=== PATIENT | female | born 1990 | race Caucasian/White ===

== ENCOUNTER 2024-01-14 19:30 | Emergency (ER) | payer OTHER, SELFPAY ==
--- NOTE | 2024-01-14 19:36 | ED_ITS ---
HPI - URI/Sore Throat General Chief Complaint: Upper Respiratory Infection Stated Complaint: SORE THROAT Time Seen by Provider: 01/14/24 19:49 Source: patient and RN notes reviewed Mode of arrival: ambulatory Limitations: no limitations History of Present Illness HPI Narrative: 33-year-old female presents to the [facility] with complaints of a sore throat, coughing, sneezing that started today. No treatment prior to arrival Related Data Home Medications Medication Instructions Recorded Confirmed apixaban 5 mg tablet (Eliquis) 5 mg PO BID 01/14/24 01/14/24 metoprolol succinate 25 mg 25 mg PO DAILY 01/14/24 01/14/24 tablet,extended release 24 hr Allergies Allergy/AdvReac Type Severity Reaction Status Date / Time diphenhydramine Allergy Severe Anaphylaxis Verified 01/14/24 19:51 [From Harshal] Review of Systems Review of Systems: All systems reviewed & are unremarkable except as noted in HPI and below Constitutional: Constitutional: Reports no additional constitutional complaints ENT: Reports as per HPI Cardiovascular: Cardiovascular: Reports no additional cardiovascular c omplaints, Denies chest pain and Denies dyspnea Respiratory: Respiratory: Reports no additional respiratory complaints, Denies chest congestion, Denies cough and Denies dyspnea Gastrointestinal: Gastrointestinal: Reports no additional gastrointestinal complaints, Denies abdominal pain, Denies nausea and Denies vomiting Musculoskeletal: Musculoskeletal: Reports no additional musculoskeletal complaints Integumentary/Breasts: Skin/Breast: Reports system reviewed and no additional complaints, except as docu PMFSH Comments At the time of my signature, I reviewed and agree with the nursing past medical, surgical, social, and family history. There is no relevant family history pertinent to the patient complaint. Exam Const: General: cooperative, healthy appearing, comfortable, no acute distress, well developed, alert and well nourished Nutritional Appearance: well nourished Orientation/consciousness: patient oriented x3 Limitations: no limitations HENMT: Head: normal to inspection Ears: hearing grossly normal bilaterally, external ears normal, TM's normal bilaterally, EAC's normal, mastoids normal and no periauricular adenopathy Face/Nose/Sinus: Normal external nose present, normal facial exam and face symmetric Face and sinus: normal facial exam and face symmetric Mouth: Yes Normal oral and palatal mucosa present, Yes lip normal and Yes tongue normal Throat: tonsils normal, uvula midline, postnasal drainage and no uvular edema Eyes: General: appearance normal, both eyes and all related structures Alignment and Position: alignment normal Periorbital: periorbital findings normal Neck: Neck: normal visual inspection, full ROM, no lymphadenopathy and no meningeal signs Chest: Chest palpation & inspection: normal inspection of the chest Resp: Effort & Inspection: normal respiratory effort and able to speak in complete sentences Auscultation: clear to auscultation bilaterally, no crackles, no rales, no rhonchi and no wheezes Cardio: Rate: regular rate Skin: General skin exam: normal color and no rashes or lesions noted Lesions: no lesions Rashes: no rashes Wounds: no wounds Neuro: General: patient oriented x3, gait normal, tone normal, moves all extremities and no meningeal signs Cognition (Neuro): normal cognition Speech: normal speech Gait exam (Neuro): Normal gait present Extrem: General: normal to inspection, full ROM, capillary refill normal and normal gait Psych: Appearance: grossly normal and well kempt Mental Status: mental status grossly normal Speech and movement: Normal speech and movement present and Clear speech present Affect: normal affect Attitude: cooperative Course Course Level of Care: Express Care Visit Vital Signs Vital signs: Vital Signs Temperature 97.5 F L 01/14/24 19:50 Pulse Rate 84 01/14/24 19:50 Respiratory Rate 17 01/14/24 19:50 Blood Pressure 134/78 01/14/24 19:50 Pulse Oximetry 100 01/14/24 19:50 Oxygen Delivery Room Air 01/14/24 19:50 Temperature 97.5 F L 01/14/24 19:50 Pulse Rate 84 01/14/24 19:50 Respiratory Rate 17 01/14/24 19:50 Blood Pressure 134/78 01/14/24 19:50 Pulse Oximetry 100 01/14/24 19:50 Oxygen Delivery Room Air 01/14/24 19:50 Reviewed MDM - URI/Sore Throat MDM Narrative Medical decision making narrative: Patient sitting comfortably in exam room. Nontoxic, vitals stable. Patient in no acute distress Patient presents with a sore throat, sneezing that started today. No treatment prior to arrival Strep test negative Will culture Patient appropriate for outpatient treatment of viral URI versus allergies. Discharge instructions reviewed with patient, as well as provided in writing per nursing staff. The instructions also include specific and strict return/GO TO THE ER as well as f/u information. All questions have been answered, and the patient deny any further questions with discharge and discharge plan. Some parts of this dictation were generated by voice recognition software and may contain typographical and/or grammatical inaccuracies. Differential Diagnosis Differential diagnosis: Likely upper respiratory infection, otitis media, sinusitis, viral infection and pharyngitis Lab Data Labs: Lab Results 01/14/24 Range/Units 19:57 POC Grp A Strep Screen Negative (Negative) Reviewed Critical Care Time Critical Care Time Critical Care Time: No Discharge Plan Discharge Clinical Impression: PND (post-nasal drip) Patient Disposition: Home, Self-Care Condition: Stable Instructions: Postnasal Drip (DC) Additional Instructions: Your rapid strep swab was negative today at [facility]. A throat culture will be sent to the laboratory for further testing. If the test is positive, you will receive a phone call within 48 hours and an appropriate antibiotic will be initiated at that time. -Alternate Tylenol and Motrin per package directions for fever or pain. -Antihistamine medication such as Zyrtec/Claritin/Yennifer during the day can help improve symptoms. -doing daily nasal irrigations can help relieve pressure your sinuses. Things like a Neti pot -Use Flonase daily to help reduce the inflammation and dry up your sinuses. -You can also use Mucinex. Be sure to drink plenty of water with these medications at least 8 ounces with every dose and it is important to drink 8 to 10 glasses of water per day. Water is a natural decongestant -Eat and drink things that are easy to swallow, like tea or soup, or popsicles. -Oral rinses such as: Salt water gargles and/or may use topical anesthetic (eg. Chloraseptic spray) or lozenges to relieve dryness or throat pain). -Frequent hand washing or hand tensile tester is one of the best ways to prevent spread of infection. -Using a vaporizer or humidifier at night will also help thin secretions and help with coughing up phlegm. -Follow up with primary care provider in 7-10 days if condition is not improving - For new or worsening symptoms go directly to the nearest ER Patient Language: [place] Prescriptions: No Action metoprolol succinate 25 mg tablet extended release 24 hr 25 mg PO DAILY Eliquis 5 mg tablet 5 mg PO BID Follow-up/Referrals: UNKNOWN,DOCTOR [Non-Staff] - Stand Alone Forms: Work/School Release IP Time of Disposition: 19:58
[2024-01-14 19:50] VITALS: BP 134/78; PULSE 84; RESP 17; TEMP 36.4; O2SAT 100
[2024-01-14 19:58] LABS: EDSTREPNEGPOS1 Negative (Negative)
== END 2024-01-14 20:00 | disposition home or self-care (01) ==
PROVIDERS: Emergency Provider Nurse Practitioner
DX: R09.82 Postnasal drip (principal); Z79.01 Long term (current) use of anticoagulants
CPT/HCPCS: 87081; 87880; 99203; G0463

== ENCOUNTER 2024-06-02 02:51 | Emergency (ER) | payer OTHER, SELFPAY ==
[2024-06-02 02:51] VITALS: BP 116/61; PULSE 73; RESP 18; TEMP 36.1; O2SAT 100
--- OUTSIDE RECORDS SUMMARY | 2024-06-02 02:53 | XMS_ITS | Clinical Summary ---
Author Organization [facility] [employer] Address [address] [place] [address] Care Team Providers Care Project Drilling Engineer Name Role Phone Dimas Nolan DO Primary Care Provider [phone] Source Comments [facility],non-owned Affiliates and Associated Physician Practices is amultiple site organization consisting of ambulatory clinics and hospital sitesin [place], [place], [place] and [place]. This disclosure is being madepursuant to the Care Everywhere program and may not contain all information available regarding this patient. Last updated 17.[facility] [employer] Allergies Active Allergy Reactions Criticality Noted Date Comments Amoxicillin Rash Medium 05/14/2023 swelling Nyquil Anaphylaxis High 04/11/2023 Penicillins Unknown 02/14/2015 Medications * Be aware that medications may not be up to date on this document. Alwaysverify current medications with the patient. Medication Sig Dispensed Refills Start Date End Date Status metoprolol succinate XL 24hr (Toprol XL) 25 MG tabletIndications: Mitral valve prolapse Take 1 (one) tablet by mouth once daily 90 tablet 4 05/14/2023 Active SEMAGLUTIDE,0.25 OR 0.5MG/DOS, SC Inject 0.75 mg subcutaneously Active acetaminophen CR (Tylenol Arthritis Pain) 650 MG tablet Take 1 (one) tablet by mouth every 8 hours as needed Active apixaban (Eliquis) 5 MG tabletIndications: Acute deep vein thrombosis (DVT) of popliteal vein of left lower extremity (HCC),Acute pulmonary embolism without acute cor pulmonale, unspecified pulmonary embolism type (HCC) Take 1 (one) tablet by mouth 2 times daily for 67 days 90 tablet 1 11/26/2023 Active Active Problems Problem Noted Date Diagnosed Date Closed fracture of upper end of left fibula 11/13 Closed nondisplaced fracture of lateral malleolus of left fibula 11/24/2023 Acute deep vein thrombosis (DVT) of lower extrem ity 11/09/2023 Acute pulmonary embolism without acute cor pulmo nale 11/09/2023 Encounter for evaluation of potential volunteer sibling donor 10/17/2021 Non-rheumatic mitral regurgitation 05/05/2017 Mitral valve prolapse 05/05/2016 Systolic murmur 02/14/2015 Immunizations Name Administration Dates Next Due DTP, HISTORIC VACCINE 05/14/1995, 992,07/25/1990, 991,02/18/1990 HEP B VACCINE, PED/ADOL 05/18/2000,12/19/1999, HIB VACCINE 05/30/1991, 1,07/25/1990, 991 INFLUENZA VACCINE, QUADR. (F LUZONE; FLULAVAL; FLUARIX; AFLURIA QUADRIVALENT; 6MO+), 0.5 ML (IIV4) 12/29/2021 MMR VACCINE 10/04/2021,05/14/1995,05/30/1991 POLIO OPV 05/14/1995, 2,05/31/1990, 990 TDAP (7yrs+) 05/24/2014 TDAP, HISTORIC VACCINE 07/23/2021 Family History Medical History Relation Name Comments Hypertension Father Hypertension Mother Thyroid Disease Mother Relation Name Status Comments Father Alive Mother Alive Social History Tobacco Use Types Packs/Day Years Used Date Smoking Tobacco: Never Smokeless Tobacco: Never Tobacco Cessation:Counseling Given: Not Answered Alcohol Use Standard Drinks/Week Comments Never 0 (1 standard drink = 0.6 oz pur e alcohol) PHQ-2 Answer Date Recorded Patient Health Questionnaire-2 Score 0 05/14/2023 Sex and Gender Information Value Date Recorded Sex Assigned at Not on file Gender Identity Not on file Sexual Orientation Not on file Last Filed Vital Signs Vital Sign Reading Time Taken Comments Blood Pressure 110/74 11/26/2023 7:44 AM CDT Pulse 84 11/26/2023 7:44 AM CDT Temperature 36.9 C (98.4 F) 11/26/2023 7:44 AM CDT Respiratory Rate 22 11/26/2023 7:44 AM CDT Oxygen Saturation 100% 11/26/2023 7:44 AM CDT Inhaled Oxygen Concentration - - Weight 83 kg (183 lb) 11/26/2023 7:44 AM CDT Height 170.2 cm (5' 7 ) 11/26/2023 7:44 AM CDT Body Mass Index 28.66 11/26/2023 7:44 AM CDT Plan of Treatment Health Maintenance Due Date Last Done Comments COVID-19 VACCINE ( season) 2023 INFLUENZA VACCINE (#1) 2023 12/29/2021 PAP SMEAR 02/28/2024 02/27/2021 (Done Outside Per Report) DEPRESSION SCREENING 03/15/2024 05/14/2023, 12/30/19 22 DTAP/TDAP/TD VACCINES (8 - Td or Tdap) 07/24/2031 07/23/2021, 05/24/2014, 05/14/1995, Additional history exists ZOSTER VACCINE (1 of 2) 11/24/2039 HIB VACCINE Completed 05/30/1991, 11/1990, 07/25/1990, Additional history exists HEPATITIS B VACCINE Completed 05/18/2000, 12/19/1999, 11/13/1999 HEPATITIS C SCREENING Completed 03/01/2021 (Done Outside Per Report) HIV SCREENING Completed 03/01/2021 (Done Outside Per Report) HPV VACCINE Aged Out No longer eligi ble based on patient's age to complete this topic MENINGOCOCCAL (Group B) VACCINE SHARED DECISION-MAKING Aged Out No longer eligible based on patient's age to complete this topic MENINGOCOCCAL GROUPS A/C/Y/W VACCINE Aged Out No longer eligible based on patient's age to complete this topic PNEUMOCOCCAL VACCINE Aged Out No long er eligible based on patient's age to complete this topic Care Teams Project Drilling Engineer Relationship Specialty Start Date End Date Dimas Nolan DO [address] [address] PCP - General Family Medicine 12/23/21
--- OUTSIDE RECORDS SUMMARY | 2024-06-02 02:53 | XMS_ITS | Referral Summary ---
Author Organization [facility] [address] [place] [address] Care Team Providers Care Eligibility Clerk Name Role Phone Steven Irene MD Unavailable + [phone] Nelida Mason MD PhD Unavailable [phone] Regina Mcmahon MD Unavailable [phone] Dimas Nolan DO Primary Care Provider + Allergies Active Allergy Reactions Criticality Noted Date Comments Amoxicillin Amoxicillin Unknown 01/24/2020 Nyquil Anaphylaxis High 04/11/2023 Penicillin V Unknown 01/24/2020 Penicillins Unknown 02/14/2015 Medications acetaminophen ER (TYLENOL) 650 mg 8 hr tablet Take 1 tablet (650 mg total) by mouth every 8 (eight) hours as needed for pain Active metoprolol XL (TOPROL-XL) 25 mg extended release tablet Take 1 tablet (25 mg total) by mouth every evening Active SEMAGLUTIDE SUBQ Inject 0.75 mg under the skin once a week Weekly on Wednesday Active apixaban (ELIQUIS) 5 mg tabletIndication s:deep venous thrombosis Take 2 tablets (10 mg total) by mouth 2 (two) times a day for 7 days, THEN 1 tablet (5 mg total) 2 (two) times a day. 148 tablet 11/11/2023 Active methocarbamoL (ROBAXIN) 500 mg tablet Take 1 tablet (500 mg total) by mouth 2 (two) times a day 20 tablet 01/27/2024 Active nitrofurantoin monohydrate (MACROBID) 100 mg capsule Take 1 capsule (100 mg total) by mouth 2 (two) times a day 10 capsule 01/27/2024 Active Active Problems Problem Noted Date Diagnosed Date Closed fracture of upper end of left fibula 11/13 Closed nondisplaced fracture of lateral malleolus of left fibula 11/24/2023 Acute pulmonary embolism without acute cor pulmo nale 11/09/2023 Acute deep vein thrombosis (DVT) of lower extrem ity 11/09/2023 Single subsegmental pulmonar y embolism without acute cor pulmonale 11/09/2023 Encounter for evaluation of potential volunteer sibling donor 10/17/2021 Non-rheumatic mitral regurgitation 05/05/2017 Mitral valve prolapse 05/05/2016 Systolic murmur 02/14/2015 Resolved Problems Problem Noted Date Diagnosed Date Resolved Date Encounter for supervision of other normal , third trimester 10/04/2021 10/05/2021 Overview (10/05/2021): 1. Supervision of a. EDC by LMP = 10 week ultrasound b. O+/E/-/-, HIV NR Needs MMR PP c. Anatomy: 05/14 incomplete 62%. Completed 06/12 40%ile d. GCT: 102 e. Tdap: given 07/23 f. COVID Vaccine: strongly recommended 1/25 g. GBS: negative h. Delivery Planning: TBD i. Feeding: breast, has breast pump and is taking BF courses j. Baby boy, Ty 2. MVP a. On Metoprolol XL 25mg daily b. Asymptomatic c. Last ECHO years ago. Repeat 06/19 normal Normal course 10/04/202108/2021 Overview (10/05/2021): 10/04/2021, PPD 1 status post (SK): Rh positive Rubella equivocal - MMR ordered and supplementing with formula until baby's blood sugars stabilize Ambulating, voiding, tolerating regular diet, pain controlled AF VSS WNL Normal exam H&H appropriate Continue routine care 10/05/2021 (SK): well Patient has no complaints MMR administered yesterday AF VSS WNL Normal exam Stable for discharge Routine discharge precautions Patient declines discharge prescription for pain medication Encounter for elective induction of labor 10/02/2021 10/05/2021 Overview (10/05/2021): 10/03/21, 0945 (SO): Has had 2 doses of cytotec and labor began. Is comfortable with an epidural Began having recurrent variable decels, some down to 70s and also some lates, Cat 2 tracing AR[address] done per Dr Rice, thick mec, IUPC and scalp lead placed Will start amnioinfusion O2 is on Labor progress has been rapid, is now 6/100/[address] Evans and had him view the monitor strip in office Will monitor to see if the intervention are effective Encounter for supervision of normal , antepartum 03/11/2021 11/18/2021 Immunizations Immunization Administration Dates Next Due Influenza, Unspecified 01/24/2020(Deferred: Kim ent Refused) MMR 10/04/2021 Tdap 07/23/2021 Social History Tobacco Use Types Packs/Day Years Used Date Smoking Tobacco: Never Smokeless Tobacco: Never Alcohol Use Standard Drinks/Week Comments Never 0 (1 standard drink = 0.6 oz pur e alcohol) [facility] Utilities Answer Date Recorded In the past 12 months has th e electric, gas, oil, or water company threatened to shut off services in your home? No 11/10/2023 Social Connection and Isolat ion Panel [NHANES] Answer Date Recorded In a typical week, how many times do you talk on the phone with family, friends, or neighbors? More than three times a week 11/10/2023 How often do you get togethe r with friends or relatives? More than three times a week 11/10/2023 How often do you attend chur ch or mandaen services? Never 11/10/2023 Do you belong to any clubs o r organizations such as episcopalian groups, unions, fraternal or athletic groups, or school groups? No 11/10/2023 How often do you attend meet ings of the clubs or organizations you belong to? Never 11/10/2023 Are you , , di vorced, , never , or living with a partner? 11/10/2023 AUDIT-C Answer Date Recorded Q1: How often do you have a drink containing alc ohol? Never 10/02/2021 Average Number of Drinks Not on file 022 Frequency of Binge Drinking Not on file 09/13 Overall Financial Resource Strain (CARDIA) Answe r Date Recorded How hard is it for you to pa y for the very basics like food, housing, medical care, and heating? Not very hard 11/10/2023 Hunger Vital Sign Answer Date Recorded Within the past 12 months, y ou worried that your food would run out before you got the money to buy more. Never true 11/10/19 24 Within the past 12 months, t he food you bought just didn't last and you didn't have money to get more. Never true 11/10/2023 PRAPARE - Transportation Answer Date Re corded In the past 12 months, has l ack of transportation kept you from medical appointments or from getting medications? No 10/14 In the past 12 months, has l ack of transportation kept you from meetings, work, or from getting things needed for daily living? No 11/10/2023 [place] Depression Scale Answer Date Recorded [place] Depression Scale Total 16 11/13/2021 The thought of harming myself has occurred to me . Never 11/13/2021 Housing Stability Vital Sign Answer Nuno e Recorded In the last 12 months, was t here a time when you were not able to pay the mortgage or rent on time? No 11/10/2023 In the past 12 months, how m any times have you moved where you were living? 0 11/10/2023 At any time in the past 12 m [facility], were you homeless or living in a snf (including now)? No 11/10/2023 Personal Safety Answer Date Recorded Have you ever been in or are you currently in a harmful physical or emotional relationship or is someone making you feel afraid or unsafe? Denies 01/27/2024 Comments No Sex and Gender Information Value Date Recorded Sex Assigned at Not on file Legal Sex Female 10:04 AM GOVERNOR ASSEMBLER HYDRAULIC Gender Identity Female 10/08/2021 3:51 PM CDT Sexual Orientation Straight 10/08/2021 3: 51 PM CDT Last Filed Vital Signs Vital Sign Reading Time Taken Comments Blood Pressure 114/76 01/27/2024 8:30 PM GOVERNOR ASSEMBLER HYDRAULIC Pulse 74 01/27/2024 8:30 PM GOVERNOR ASSEMBLER HYDRAULIC Temperature 36.4 C (97.5 F) 01/27/2024 2:10 PM GOVERNOR ASSEMBLER HYDRAULIC Respiratory Rate 18 01/27/2024 8:30 PM GOVERNOR ASSEMBLER HYDRAULIC Oxygen Saturation 96% 01/27/2024 8:30 PM GOVERNOR ASSEMBLER HYDRAULIC Inhaled Oxygen Concentration - - Weight 79.8 kg (175 lb 14.8 oz) 01/27/2024 2:10 PM GOVERNOR ASSEMBLER HYDRAULIC Height 172.7 cm (5' 8 ) 01/27/2024 2:10 PM GOVERNOR ASSEMBLER HYDRAULIC Body Mass Index 26.75 01/27/2024 2:10 PM GOVERNOR ASSEMBLER HYDRAULIC Plan of Treatment Not on file Procedures Procedure Name Priority Date/Time Associated Diagnosis Comments HEPATITIS C ANTIBODY Routine 03/01/2021 2:07 PM GOVERNOR ASSEMBLER HYDRAULIC Missed menses Positive test THINPREP PAP WITH HPV Routine 02/27/2021 12:45 PM GOVERNOR ASSEMBLER HYDRAULIC from Last 3 Months or Most Recently Relevant to Health Maintenance Results * Hepatitis C antibody (03/01/2021 2:07 PM GOVERNOR ASSEMBLER HYDRAULIC) Hep C Ab Nonreactive Nonreactive SHELIA Comment: Interpretive Data Nonreactive: Antibodies to HCV not detected. Does NOT exclude the possibility of recent exposure to HCV. Equivocal: Equivocal for HCV antibodies. Supplemental molecular testing will be automatically performed to determine infection status in accordance with current CDC screening recommendations. Reactive: Positive for HCV antibodies. This may represent current or past HCV infection. Supplemental molecular testing will be automatically performed to determine current infection status in accordance with current CDC screening recommendations. Interpretive data was last revised on 2019. Blood 03/01/2021 2:07 PM GOVERNOR ASSEMBLER HYDRAULIC 03/01/2021 4:25 PM GOVERNOR ASSEMBLER HYDRAULIC Susie Martin MD LAB MICROBIOLOGY - GENERAL ORDER TERI Final Result SHELIA [address] [facility] Department [place] [address] * ThinPrep Pap with HPV (02/27/2021 12:45 PM GOVERNOR ASSEMBLER HYDRAULIC) Pap test 02/27/2021 12:4 5 PM GOVERNOR ASSEMBLER HYDRAULIC 03/03/2021 12:45 PM GOVERNOR ASSEMBLER HYDRAULIC Narrative 03/05/2021 3:38 PM GOVERNOR ASSEMBLER HYDRAULIC [facility] Department of Pathology [address] [place] [id number] Final Report with Addendum Note to Patients: This report may contain a detailed description of human tissue sent by a health care provider to the laboratory for pathologic evaluation. The content of this report is essential for diagnosis and may provide important critical findings. This information may be unfamiliar to patients to review without a medical professional present. It is advised that the patient review this report in the presence of a health care provider who can answer questions and explain the details. Patient Name: TETO HIDALGO Address: [address] [place] [address] Gender: F : 1990 (Age: 30) Service: Laboratory Location: [facility] #: [id number] Patient Type: [facility] SPECIMEN Taken: 02/27/2021 Received: 03/03/2021 Accessioned:: 03/04/2021 Reported: 03/05/2021 Physician(s): Susie Martin M.D. [facility] Diagnosis: Source of Specimen: Imaged Thinprep Pap Test plus HPV - Teacher Of Family And Consumer Science Cytologic Material Specimen Adequacy: - Satisfactory for evaluation; endocervical/transformation zone component present General Category: - Negative for intraepithelial lesion or malignancy CABRERA Merida(ASCP) Report Electronically Reviewed and Signed Out By RACHEL MeridaASCP) 03/05/2021 15:38:27 Addenda: HPV Test Interpretation NEGATIVE for types 16, 18, 31, 33, 35, 39, 45, 51, 52, 56, 58, 59, 66 and 68. Test performed utilizing Gen-Probe Aptima assay. CABRERA Merida(ASCP) Report Electronically Reviewed and Signed Out By CABRERA Merida(ASCP) 03/05/2021 11:11:25 Specimen(s) Received: A: Imaged Thinprep Pap Test plus HPV - Teacher Of Family And Consumer Science Cytologic Material Clinical History: Last Menstrual Period: 10/16/21 Menstrual History: Routine Checkup The Pap test is a screening test used to aid in the detection of cervical cancer and its precursors. It should not be the sole means by which malignant and premalignant lesions are diagnosed. Both false negative and false positive results may occur. It also has poor sensitivity for the detection of endometrial lesions and should not be used to evaluate suspected endometrial abnormalities. For these reasons it is most important to obtain Pap tests at regular intervals. The performance characteristics of some immunohistochemical stains, fluorescence in-situ hybridization tests and immunophenotyping by flow cytometry cited in this report (if any) were determined by the Surgical Pathology Department at [facility] as part of an ongoing senior supplier quality engineer program and in compliance with federally mandated regulations drawn from the Clinical Laboratory Improvement Act of 1988 (CLIA '88). Some of these tests rely on the use of analyte specific reagents and are subject to specific labeling requirements by the US Food and Drug Administration. Such diagnostic tests may only be performed in a facility that is certified by the Department of Health and Human Services as a high complexity laboratory under CLIA '88. The FDA has determined that such clearance or approval is not necessary. This test is used for clinical purposes. It should not be regarded as investigational or for research. Nevertheless, federal rules concerning the medical use of analyte specific reagents require that the following disclaimer be attached to the report: This test was developed and its performance characteristics determined by the Surgical Pathology Department [facility]. It has not been cleared or approved by the U. S. Food and Drug Administration. Susie Martin MD LAB CYTOLOGY ORDERABLES Final Re sult from Last 3 Months or Most Recently Relevant to Health Maintenance Insurance [employer] CIGNA CIGNA CIGNA Advance Directives For more information, please contact: [phone] * Full Code (Latest Code Status on File) Date Activated Date Inactivated Comments 11/09/2023 8:40 PM 11/11/2023 3:41 PM * Full Code Date Activated Date Inactivated Comments 10/03/2021 11:55 AM 10/05/2021 4:40 PM * Full Code Date Activated Date Inactivated Comments 10/02/2021 9:08 PM 10/03/2021 11:55 AM Full CPR in case of cardiopulmonary arrest Care Teams Eligibility Clerk Relationship Specialty Start Date End Date Dimas Nolan DO [address] [address] PCP - General Family Practice 01/12/22 Steven Irene MD [address] [address] Family Medicine 10/08/21 Nelida Mason MD PhD [address] [address] Consulting Physician Medical Oncology 01/12/22 Regina Mcmahon MD [address] [place] [address] [place] [address] Referring Physician Genetics 01/12/22
--- OUTSIDE RECORDS SUMMARY | 2024-06-02 02:53 | XMS_ITS | Clinical Summary ---
Author Organization [facility] [address] Address [address] [place] [address] Care Team Providers Care Elevator Constructor Supervisor Name Role Phone Steven Irene MD Unavailable + [phone] Nelida Mason MD PhD Unavailable [phone] Regina Mcmahon MD Unavailable [phone] Dimas Nolan DO Primary Care Provider + [...] Kim ent Refused) MMR 10/04/2021 Tdap 07/23/2021 Medical History Medical History Date Comments Arrhythmia Anxiety MVP (mitral valve prolapse) Family History Medical History Relation Name Comments Heart disease Father Arrhythmia Maternal Grandfather No Known Problems Maternal Grandmother No Known Problems Paternal Grandfather Diabetes Paternal Grandmother No Known Problems Sister Ovarian cancer Neg Hx Uterine cancer Neg Hx Relation Name Status Comments Brother Alive Father Alive Maternal Grandfather Alive Maternal Grandmother Alive Mother Alive Paternal Grandfather Alive Paternal Grandmother Sister Alive Social History Tobacco Use Types Packs/Day Years Used Date Smoking Tobacco: Never Smokeless Tobacco: Never Alcohol Use Standard Drinks/Week Comments Never 0 (1 standard drink = 0.6 oz pur e alcohol) [employer] Utilities Answer Date Recorded In the past 12 months has th e [employer], gas, oil, or water [employer] threatened to shut off services in your [...] week 11/10/2023 How often do you attend [facility] or muslim services? Never 11/10/2023 Do you belong to any clubs o r organizations such as anabaptist groups, unions, fraternal or athletic groups, or [...] things needed for daily living? No 11/10/2023 [place] Depression Scale Answer Date Recorded [place] Depression Scale Total 16 11/13/2021 The thought [...] any time in the past 12 m [facility], were you homeless or living in a nursing home (including now)? No 11/10/2023 Personal Safety Answer Date Recorded Have you ever been in or are you currently in a harmful physical or emotional relationship or is someone making you feel afraid or unsafe? Denies 01/27/2024 Comments No Sex and Gender Information Value Date Recorded Sex Assigned at Not on file Legal Sex Female 10:04 AM CANNED FOOD RECONDITIONING INSPECTOR Gender Identity Female 10/08/2021 3:51 PM CDT Sexual Orientation Straight 10/08/2021 3: 51 PM CDT Obstetrics History Para Term AB IAB SAB Ectopic Multiple Livin g Live Births 2 1 1 0 1 0 1 0 1 1 Date Outcome GA Total Labor Labor/2nd/3rd Weight Sex Type Anes PTL Katelynn A1 A5 Name Clin 2019 SAB SAB 2021 Term 40w 0d 2h 24m 1h 49m/0h 30m/0h 05m 3.15 kg (6 lb 15.1 oz) M Vag-S pont Epidur al N Livin g 8 9 HIDALGO YAMILETHLE E Obernu efeman n, Tatiana N., CNM Complications: Intolera nce Delivery Location:[facility]) Last Filed Vital Signs Vital Sign Reading Time Taken Comments Blood Pressure 114/76 01/27/2024 8:30 PM CANNED FOOD RECONDITIONING INSPECTOR Pulse 74 01/27/2024 8:30 PM CANNED FOOD RECONDITIONING INSPECTOR Temperature 36.4 C (97.5 F) 01/27/2024 2:10 PM CANNED FOOD RECONDITIONING INSPECTOR Respiratory Rate 18 01/27/2024 8:30 PM CANNED FOOD RECONDITIONING INSPECTOR Oxygen Saturation 96% 01/27/2024 8:30 PM CANNED FOOD RECONDITIONING INSPECTOR Inhaled Oxygen Concentration - - Weight 79.8 kg (175 lb 14.8 oz) 01/27/2024 2:10 PM CANNED FOOD RECONDITIONING INSPECTOR Height 172.7 cm (5' 8 ) 01/27/2024 2:10 PM CANNED FOOD RECONDITIONING INSPECTOR Body Mass Index 26.75 01/27/2024 2:10 PM CANNED FOOD RECONDITIONING INSPECTOR Plan of Treatment Health Maintenance Due Date Last Done Comments Varicella Vaccines (1 of 2 - 13+ 2-dose series) 2002 Regular Well Visit/Exam 18-64 11/24/2007 Cervical Cancer Screening 02/27/2022 02/27/2021 Depression Screening 11/13/2022 11/13/2021, 01/24/20 20 Influenza Vaccine (#1) 2023 12/29/2021 DTaP/Tdap/Td Vaccine (8 - Td or Tdap) 07/24/2031 07/23/2021, 05/24/2014, 05/14/1995, Additional history exists Hepatitis B Screening Completed 05/18/2000 , 12/19/1999, 11/13/1999 Hepatitis C Screening Completed 03/01/2021 HPV Vaccines Aged Out No longer eligi ble based on patient's age to complete this topic Pneumococcal vaccine <65 Aged Out No longer eligible based on patient's age to complete this topic Procedures Procedure Name Priority Date/Time Associated Diagnosis Comments HEPATITIS C ANTIBODY Routine 03/01/2021 2:07 PM CANNED FOOD RECONDITIONING INSPECTOR Missed menses Positive test THINPREP PAP WITH HPV Routine 02/27/2021 12:45 PM CANNED FOOD RECONDITIONING INSPECTOR from Last 3 Months or Most Recently Relevant to Health Maintenance Results * Hepatitis C antibody (03/01/2021 2:07 PM CANNED FOOD RECONDITIONING INSPECTOR) Hep C Ab Nonreactive Nonreactive SHELIA VEGA Comment: Interpretive Data Nonreactive: Antibodies to HCV [...] revised on 2019. Blood 03/01/2021 2:07 PM CANNED FOOD RECONDITIONING INSPECTOR 03/01/2021 4:25 PM CANNED FOOD RECONDITIONING INSPECTOR Susie Martin MD LAB MICROBIOLOGY - GENERAL ORDER TERI Final Result SHELIA [address] [facility] Department [place] [address] * ThinPrep Pap with HPV (02/27/2021 12:45 PM CANNED FOOD RECONDITIONING INSPECTOR) Pap test 02/27/2021 12:4 5 PM CANNED FOOD RECONDITIONING INSPECTOR 03/03/2021 12:45 PM CANNED FOOD RECONDITIONING INSPECTOR Narrative 03/05/2021 3:38 PM CANNED FOOD RECONDITIONING INSPECTOR [facility] Department of Pathology [address] [place] [address] Final Report with Addendum Note to Patients: [...] the details. Patient Name: TETO HIDALGO Address: [address] [place] [address] Gender: F : 1990 (Age: 30) Service: Laboratory Location: N : [id number] [facility] #: [id number] Patient Type: [facility] SPECIMEN Taken: 02/27/2021 Received: 03/03/2021 Accessioned:: 03/04/2021 Reported: 03/05/2021 Physician(s): Susie Martin M.D. [facility] Diagnosis: Source of Specimen: Imaged Thinprep Pap Test plus HPV - Media Analyst Cytologic Material Specimen Adequacy: - Satisfactory for [...] Imaged Thinprep Pap Test plus HPV - Media Analyst Cytologic Material Clinical History: Last Menstrual Period: 12/28/20 Menstrual History: Routine Checkup The Pap test [...] determined by the Surgical Pathology Department at [facility] as part of an ongoing water quality manager program and in compliance with federally mandated [...] characteristics determined by the Surgical Pathology Department [facility]. It has not been cleared or approved by the U. S. Food and Drug Administration. Susie Martin MD LAB CYTOLOGY ORDERABLES Final Re sult from Last 3 Months or Most Recently Relevant to Health Maintenance Insurance [facility] CIGNA CIGNA CIGNA Advance Directives For more information, please contact: [phone] * Full Code (Latest Code Status on File) Date Activated Date Inactivated Comments 11/09/2023 8:40 PM 11/11/2023 3:41 PM * Full Code Date Activated Date Inactivated Comments 10/03/2021 11:55 AM 10/05/2021 4:40 PM * Full Code Date Activated Date Inactivated Comments 10/02/2021 9:08 PM 10/03/2021 11:55 AM Full CPR in case of cardiopulmonary arrest Care Teams Elevator Constructor Supervisor Relationship Specialty Start Date End Date Dimas Nolan DO [address] [address] PCP - General Family Practice 01/12/22 Steven Irene MD [address] [address] Family Medicine 10/08/21 Nelida Mason MD PhD [address] [address] Consulting Physician Medical Oncology 01/12/22 Regina Mcmahon MD [address] [address] Referring Physician Genetics 01/12/22
[2024-06-02 03:10] VITALS: O2SAT 100
--- NOTE | 2024-06-02 04:08 | ED.GENADULT ---
HPI - General Adult General Chief complaint: Allergic Reaction Stated complaint: unknown Time Seen by Provider: 06/02/24 03:30 History of Present Illness HPI narrative: Patient 33-year-old female who presents emergency department chief complaint allergic reaction. The patient reports that she when out this evening had a steak and then went to sleep woke up and had hives over body the patient states she has had a prior anaphylactic reaction that she believes was to NyQuil previously patient reports she took some Claritin at home and then came to the emergency department. The patient reports she is feeling much better and reports the hives are improving. Related Data Home Medications ?Medication ?Instructions ?Recorded ?Confirmed ?Last Taken ?Type apixaban 5 mg tablet (Eliquis) 5 mg PO BID 01/14/24 01/14/24 Unknown History metoprolol succinate 25 mg 25 mg PO DAILY 01/14/24 01/14/24 Unknown History tablet,extended release 24 hr Allergies Allergy/AdvReac Type Severity Reaction Status Date / Time diphenhydramine (From Allergy Severe Anaphylaxis Verified 06/02/24 03:10 Benadryl) acetaminophen (From NyQuil) Allergy Unknown Verified 06/02/24 03:10 dextromethorphan (From Allergy Unknown Verified 06/02/24 03:10 NyQuil) doxylamine (From NyQuil) Allergy Unknown Verified 06/02/24 03:10 pseudoephedrine (From NyQuil) Allergy Unknown Verified 06/02/24 03:10 Review of Systems Review of Systems: A 10 system review of systems was completed on the patient and is negative except for what is stated in the HPI. Nursing and ancillary documentation was reviewed. Exam Narrative: GENERAL: Well-appearing, well-nourished, and in no acute distress. HEAD: Normocephalic, atraumatic. EYES: PERRLA and EOMI. ENT: Nares clear, no rhinorrhea or epistaxis. Mucous membranes moist. NECK: Supple. CHEST: Clear to auscultation. No respiratory distress. HEART: Regular rate and rhythm. No murmur heard. Normal peripheral pulses. ABDOMEN: Soft, nontender, nondistended, normal active bowel sounds. EXTREMITIES: Normal range of motion. No edema. SKIN: Warm, dry, urticaria present on the forearm. NEURO: No focal deficits. Alert and oriented x3. PSYCH: Normal mood and affect. Course Vital Signs Vital signs: Vital Signs Temperature 36.1 C L 06/02/24 02:51 Pulse Rate 73 06/02/24 02:51 Respiratory Rate 18 06/02/24 02:51 Blood Pressure 116/61 06/02/24 02:51 Pulse Oximetry 100 06/02/24 02:51 Oxygen Delivery Room Air 06/02/24 02:51 Temperature 36.1 C L 06/02/24 02:51 Pulse Rate 73 06/02/24 02:51 Respiratory Rate 18 06/02/24 02:51 Blood Pressure 116/61 06/02/24 02:51 Pulse Oximetry 100 06/02/24 03:10 Oxygen Delivery Room Air 06/02/24 03:10 Medical Decision Making MDM Narrative Medical decision making narrative: Differential diagnosis includes allergic reaction, idiopathic urticaria Patient is feeling much better at this time has been observed in the emergency department and will be discharged home on a prescription steroids the patient follow-up with her primary care provider and may need allergy testing as an outpatient Vital Signs Vital Signs: Vital Signs Temperature 36.1 C L 06/02/24 02:51 Pulse Rate 73 06/02/24 02:51 Respiratory Rate 18 06/02/24 02:51 Blood Pressure 116/61 06/02/24 02:51 Pulse Oximetry 100 06/02/24 02:51 Oxygen Delivery Room Air 06/02/24 02:51 Temperature 36.1 C L 06/02/24 02:51 Pulse Rate 73 06/02/24 02:51 Respiratory Rate 18 06/02/24 02:51 Blood Pressure 116/61 06/02/24 02:51 Pulse Oximetry 100 06/02/24 03:10 Oxygen Delivery Room Air 06/02/24 03:10 Discharge Plan Discharge Clinical Impression: Allergic reaction, Urticaria Patient Disposition: Home, Self-Care Condition: Stable Instructions: Antibiotic Form, Urticaria (ED), Allergies (ED) Patient Language: Divehi Prescriptions: New prednisone 20 mg tablet 40 mg PO DAILY 5 Days Qty: 10 0RF No Action metoprolol succinate 25 mg tablet extended release 24 hr 25 mg PO DAILY Eliquis 5 mg tablet 5 mg PO BID Follow-up/Referrals: Kannan Rojas MD [Physician] - UNKNOWN,DOCTOR [Primary Care Provider] - Time of Disposition: 04:11
[2024-06-02] MEDS: predniSONE 20 MG TABLET 60 MG PO (04:20)
== END 2024-06-02 04:21 | disposition home or self-care (01) ==
PROVIDERS: Emergency Provider Emergency Medicine
DX: T78.40XA Allergy, unspecified, initial encounter (principal); L50.9 Urticaria, unspecified; Z79.01 Long term (current) use of anticoagulants
CPT/HCPCS: 99283; J7512